=== PATIENT | male | born 1995 | race African-American/Black ===

== ENCOUNTER 2024-10-05 22:30 | Emergency (ER) | payer OTHER ==
[~2024-10-05] VITALS: Ht 190.5 cm; Wt 95.2 kg
[2024-10-05 22:35] VITALS: O2SAT 100
[2024-10-05 22:41] VITALS: BP 163/122; PULSE 105; RESP 22; TEMP 98; O2SAT 98
[2024-10-05] MEDS: FentaNYL CITRATE PF 100 MCG/2 ML VIAL IVP ONE ×2 (22:42)
[2024-10-05] MEDS: SODIUM CHLORIDE 0.9% 1,000 ML IV ONE (22:42)
== END 2024-10-06 00:26 | disposition short-term general hospital (02) ==
LOC: EMS 22:34 → EDBD 22:34 → EMS 10-06 00:26
DX: S31.133A Puncture wound of abdominal wall without foreign body, right lower quadrant without penetration into peritoneal cavity, initial encounter (principal); I10 Essential (primary) hypertension; W34.00XA Accidental discharge from unspecified firearms or gun, initial encounter; Y93.89 Activity, other specified; Y92.89 Other specified places as the place of occurrence of the external cause; Y99.8 Other external cause status
CPT/HCPCS: 99285; 96374; 96361; J3010; J7030